=== PATIENT | male | born 1980 | race Caucasian/White ===

== ENCOUNTER 2021-12-13 09:53 | Emergency (ER) | payer BC ==
[~2021-12-13] VITALS: Ht 185.4 cm; Wt 113.4 kg
[2021-12-13 10:11] VITALS: BP_SYST 131
--- NOTE | 2021-12-13 11:34 | NUR ---
Pt brought by self, A&Ox4, pt presents to ER with L 2nd and 3rd finger pain x1 month, skin pink and warm, cap refill<3, VSS.
--- NOTE | 2021-12-13 11:36 | NUR ---
Dr shaw evaluating patient in the [facility]
[2021-12-13 12:55] VITALS: BP_SYST 131
--- NOTE | 2021-12-13 12:56 | NUR ---
Patient given written and verbal discharge instructions and verbalizes understanding. ER MD discussed with patient the results and treatment provided. Patient in stable condition. ID arm band removed. No Rx given. Patient educated on pain management and to follow up with PMD. Pain Scale 2/10. Opportunity for questions provided and answered. Medication side effect fact sheet provided.
== END 2021-12-13 12:55 | disposition home or self-care (01) ==
LOC: SED 09:53
DX: M79.645 Pain in left finger(s) (principal)
CPT/HCPCS: 99283